=== PATIENT | female | born 1970 | race Caucasian/White ===

== ENCOUNTER 2016-12-30 16:24 | Emergency (ER) | payer MEDICAID ==
--- NOTE | 2016-12-30 16:57 | EDM.PDOC ---
ED HPI GENERAL MEDICAL PROBLEM - General Chief Complaint: General Stated Complaint: PAIN RT PETRAE Time Seen by Provider: 12/30/16 16:42 - History of Present Illness INITIAL COMMENTS - FREE TEXT/NARRATIVE: HISTORY AND PHYSICAL: History of present illness: The patient is a 46-year-old female who has a history of falling in her kitchen and breaking her right clavicle on December 26, 4 days ago and was seen at the ER in [place]; she had x-rays performed air and was placed in a clavicle strap brace. She states that she has had swelling of her right hand since that time although she has a sling she has not been using it consistently. She's had some numbness with the swelling but the numbness is now improved. She has not scheduled her follow up yet but presents to the ER she is concerned about the swelling in her hand but also because of the brace the that they gave her is incredibly challenging to get in and out of is not very user friendly. She is asking for a different brace. She has no other systemic complaints Review of systems: As per history of present illness and below otherwise all systems reviewed and negative. Past medical history: As per history of present illness and as reviewed below otherwise noncontributory. Surgical history: As per history of present illness and as reviewed below otherwise noncontributory. Social history: No reported history of drug or alcohol abuse. Family history: As per history of present illness and as reviewed below otherwise noncontributory. Physical exam: General: Well-developed well nourished female who is nontoxic and speaking clearly HEENT: Atraumatic, normocephalic, negative for conjunctival pallor or scleral icterus, mucous membranes moist, throat clear, neck supple, nontender, trachea midline. Lungs: Clear to auscultation, breath sounds equal bilaterally, chest nontender. There is tenderness at the right clavicle area with resolving ecchymosis but no gross deformity is appreciated. Heart: S1S2, regular, negative for clicks, rubs, or JVD. Abdomen: Soft, nondistended, nontender. NABS Pelvis: Deferred Genitourinary: Deferred. Rectal: Deferred. Extremities: Atraumatic except for right clavicle area please see above exam. Please also note that she has soft tissue swelling of her right hand the compartments are soft and appears to be very dependent as it does not extend up the forearm to the elbow and distal humerus. Neurosensory is intact in her hand. The legs are, negative for cords or calf pain. Neurovascular unremarkable. Neuro: Awake, alert, oriented. Cranial nerves II through XII unremarkable. Cerebellum unremarkable. Motor and sensory unremarkable throughout. Exam nonfocal. Diagnostics: [] Therapeutics: New clavicle strap Patient has a sling and I recommend that she please use that and elevate her right hand as much is possible and wear the new clavicle strap she's been given today. We'll also give her referral to orthopedics as she would like to followup here. Impression: Right clavicle fracture reevaluation, right hand swelling secondary to dependent edema Definitive disposition and diagnosis as appropriate pending reevaluation and review of above. Right Shoulder Pain Score (Numeric/FACES): 8 - Related Data Allergies Allergy/AdvReac Type Severity Reaction Status Date / Time acetaminophen [From Tylox] Allergy Vomiting Verified 12/30/16 16:36 meperidine Allergy Hallucinati Verified 12/30/16 16:36 ons oxycodone [From Tylox] Allergy Vomiting Verified 12/30/16 16:36 Home Meds: Home Meds Acetaminophen/HYDROcodone [[place] 325-5 MG] 1 tab PO Q4HR 12/30/16 [History] Past Medical History - Past Health History Medical/Surgical History: Denies Medical/Surgical History Endocrine/Metabolic History: Reports: Hypothyroidism - Infectious Disease History Infectious Disease History: Reports: Chicken Pox Social & Family History - Family History Family Medical History: Noncontributory - Tobacco Use Smoking Status *Q: Current Every Day Smoker Years of Tobacco use: 10 Packs/Tins Daily: 1 - Caffeine Use Caffeine Use: Reports: None - Recreational Drug Use Recreational Drug Use: No ED ROS GENERAL - Review of Systems Review Of Systems: ROS reveals no pertinent complaints other than HPI. ED EXAM, GENERAL - Physical Exam Exam: See Below (See dictation) Course - Vital Signs Last Recorded V/S: Last Vital Signs Temp 36.6 C 12/30/16 16:33 Pulse 74 12/30/16 16:33 Resp 16 12/30/16 16:33 BP 142/88 H 12/30/16 16:33 Pulse Ox 98 12/30/16 16:33 Departure - Departure Time of Disposition: 16:57 Disposition: Home, Self-Care 01 Condition: good Clinical Impression: Clavicle fracture Qualifiers: Encounter type: sequela Fracture type: closed Laterality: right - Discharge Information Forms: ED Department Discharge Additional Instructions: The following information is given to patients seen in the emergency department who are being discharged to home. This information is to outline your options for follow-up care. We provide all patients seen in our emergency department with a follow-up referral. The need for follow-up, as well as the timing and circumstances, are variable depending upon the specifics of your emergency department visit. If you don't have a primary care physician on staff, we will provide you with a referral. We always advise you to contact your personal physician following an emergency department visit to inform them of the circumstance of the visit and for follow-up with them and/or the need for any referrals to a consulting specialist. The emergency department will also refer you to a specialist when appropriate. This referral assures that you have the opportunity for followup care with a specialist. All of these measure are taken in an effort to provide you with optimal care, which includes your followup. Under all circumstances we always encourage you to contact your private physician who remains a resource for coordinating your care. When calling for followup care, please make the office aware that this follow-up is from your recent emergency room visit. If for any reason you are refused follow-up, please contact the [facility] emergency department at and ask to speak to the emergency department charge nurse. [facility] Primary care- Internal Medicine and Family [facility] [address] [place] [id number] [facility] Specialty Care--Orthopedic clinic Professional Building [address] [place] [id number] Please use the new clavicle strap as shown and ice and elevate the right hand to reduce the swelling as we discussed. These pain medications that you have and call and followup in your clinic referral from your ER visit or our clinic. Return to ER as needed and as discussed
[2016-12-30 17:32] VITALS: BP 154/82
== END 2016-12-30 17:16 | disposition home or self-care (01) ==
LOC: MW.ED 16:24
DX: S42.001S Fracture of unspecified part of right clavicle, sequela (principal); E03.9 Hypothyroidism, unspecified; F17.210 Nicotine dependence, cigarettes, uncomplicated; Z88.6 Allergy status to analgesic agent; Y92.000 Kitchen of unspecified non-institutional (private) residence as the place of occurrence of the external cause; Z88.5 Allergy status to narcotic agent; W18.39XS Other fall on same level, sequela
CPT/HCPCS: 99283

== ENCOUNTER → 2017-01-01 | Outpatient (CLI) | payer MEDICAID | LOC: MW.CHRC 09:33 | PROVIDERS: ATTEND Family Medicine | DX: R30.0 Dysuria (principal) | CPT/HCPCS: 81001; 87086; 87088; 87186; 87491; 87591 ==

== ENCOUNTER 2017-08-12 12:41 | Emergency (ER) | payer MEDICAID ==
[2017-08-12 12:51] VITALS: BP 177/108
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
[2017-08-12] MEDS ORDERED: Ibuprofen 400 MG Tab PO ONE (13:32)
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
== END 2017-08-12 14:09 | disposition home or self-care (01) ==
LOC: MW.ED 12:41
DX: S00.33XA Contusion of nose, initial encounter (principal); F17.210 Nicotine dependence, cigarettes, uncomplicated; Z88.5 Allergy status to narcotic agent; Z88.8 Allergy status to other drugs, medicaments and biological substances; Z79.899 Other long term (current) drug therapy; Y04.2XXA Assault by strike against or bumped into by another person, initial encounter
CPT/HCPCS: 70160; 99283; A9270

== ENCOUNTER 2018-11-13 06:46 | Emergency (ER) | payer MEDICAID ==
[2018-11-13 07:07] VITALS: BP 154/108
--- NOTE | 2018-11-13 07:28 | EDM.PDOC ---
ED HPI GENERAL MEDICAL PROBLEM - General Chief Complaint: Neck Problem Stated Complaint: PT'S NECK IS SWOLLEN Time Seen by Provider: 11/13/18 07:27 Source of Information: Reports: Patient - History of Present Illness INITIAL COMMENTS - FREE TEXT/NARRATIVE: HISTORY AND PHYSICAL: History of present illness: [Patient has a small swelling on a longer anterior cervical chain/left SCM seems to be 1.5 cm nodule she is set up for biopsy of this lesion on Thursday in [place] There is no airway compromise, certainly patient is concerned about the lesion and appears worried, however she is in no acute distress she has some acne that is bothering her left ear effusion Otherwise no fever nausea vomiting chills sweats no chest pain shortness breath headache dizziness palpitation no bowel or urine symptoms no stridor] Review of systems: As per history of present illness and below otherwise all systems reviewed and negative. Past medical history: As per history of present illness and as reviewed below otherwise noncontributory. Surgical history: As per history of present illness and as reviewed below otherwise noncontributory. Social history: No reported history of drug or alcohol abuse. Family history: As per history of present illness and as reviewed below otherwise noncontributory. Physical exam: HEENT: Atraumatic, normocephalic, pupils reactive, negative for conjunctival pallor or scleral icterus, mucous membranes moist, throat clear, neck supple, nontender, trachea midline. No stridor Lungs: Clear to auscultation, breath sounds equal bilaterally, chest nontender. Heart: S1S2, regular, negative for clicks, rubs, or JVD. Abdomen: Soft, nondistended, nontender. Negative for masses or hepatosplenomegaly. Negative for costovertebral tenderness. Pelvis: Stable nontender. Genitourinary: Deferred. Rectal: Deferred. Extremities: Atraumatic, negative for cords or calf pain. Neurovascular unremarkable. Neuro: Awake, alert, oriented. Cranial nerves II through XII unremarkable. Cerebellum unremarkable. Motor and sensory unremarkable throughout. Exam nonfocal. Diagnostics: [MRI on file ] Therapeutics: [Doxycycline] Impression: [1.5 cm lesion left SCM Acne Left ear effusion] Definitive disposition and diagnosis as appropriate pending reevaluation and review of above. Left Neck Pain Score (Numeric/FACES): 7 - Related Data Allergies Allergy/AdvReac Type Severity Reaction Status Date / Time acetaminophen [From Tylox] Allergy Vomiting Verified 11/13/18 07:22 Iodinated Contrast- Oral and Allergy Burning Verified 11/13/18 07:22 IV Dye meperidine Allergy Hallucinati Verified 11/13/18 07:22 ons oxycodone [From Tylox] Allergy Vomiting Verified 11/13/18 07:22 Home Meds: Home Meds Levothyroxine [Synthroid] 88 mcg PO DAILY 08/12/17 [History] Past Medical History - Past Health History Medical/Surgical History: Denies Medical/Surgical History Cardiovascular History: Reports: Hypertension Endocrine/Metabolic History: Reports: Hypothyroidism Immunologic History: Reports: None - Infectious Disease History Infectious Disease History: Reports: Chicken Pox - Past Surgical History GI Surgical History: Reports: Hernia Repair/Other Female Surgical History: Reports: Section Other Oncologic Surgeries/Procedures: new tumor dx (L) neck Social & Family History - Family History Family Medical History: Noncontributory - Tobacco Use Smoking Status *Q: Current Every Day Smoker Years of Tobacco use: 25 Packs/Tins Daily: 1 - Caffeine Use Caffeine Use: Reports: Coffee, Soda, Tea - Recreational Drug Use Recreational Drug Use: No ED ROS GENERAL - Review of Systems Review Of Systems: See Below ED EXAM, GENERAL - Physical Exam Exam: See Below Course - Vital Signs Last Recorded V/S: Last Vital Signs Temp 98.1 F 11/13/18 07:06 Pulse 95 11/13/18 07:06 Resp 20 11/13/18 07:06 BP 154/108 H 11/13/18 07:06 Pulse Ox 98 11/13/18 07:06 Departure - Departure Time of Disposition: 07:50 Disposition: Home, Self-Care 01 Condition: Good Clinical Impression: Eustachian tube dysfunction, Acne - Discharge Information Referrals: PCP,None [Primary Care Provider] - Forms: ED Department Discharge Additional Instructions: The following information is given to patients seen in the emergency department who are being discharged to home. This information is to outline your options for follow-up care. We provide all patients seen in our emergency department with a follow-up referral. The need for follow-up, as well as the timing and circumstances, are variable depending upon the specifics of your emergency department visit. If you don't have a primary care physician on staff, we will provide you with a referral. We always advise you to contact your personal physician following an emergency department visit to inform them of the circumstance of the visit and for follow-up with them and/or the need for any referrals to a consulting specialist. The emergency department will also refer you to a specialist when appropriate. This referral assures that you have the opportunity for follow-up care with a specialist. All of these measure are taken in an effort to provide you with optimal care, which includes your follow-up. Under all circumstances we always encourage you to contact your private physician who remains a resource for coordinating your care. When calling for follow-up care, please make the office aware that this follow-up is from your recent emergency room visit. If for any reason you are refused follow-up, please contact the [facility] emergency department at and asked to speak to the emergency department charge nurse.
== END 2018-11-13 08:03 | disposition home or self-care (01) ==
LOC: MW.ED 06:46
DX: L70.9 Acne, unspecified (principal); M62.89 Other specified disorders of muscle; H69.92 Unspecified Eustachian tube disorder, left ear; I10 Essential (primary) hypertension; E03.9 Hypothyroidism, unspecified; F17.210 Nicotine dependence, cigarettes, uncomplicated; Z88.6 Allergy status to analgesic agent; Z91.041 Radiographic dye allergy status; Z88.8 Allergy status to other drugs, medicaments and biological substances; Z79.899 Other long term (current) drug therapy
CPT/HCPCS: 99282